=== PATIENT | female | born 1955 | race Caucasian/White ===

== ENCOUNTER 2020-10-04 21:55 | Inpatient (IN) | payer OTHER ==
--- NOTE | 2020-10-04 22:21 | EDM.PDOC ---
ED HPI GENERAL MEDICAL PROBLEM - General Chief Complaint: Cardiovascular Problem Stated Complaint: A-FIB Time Seen by Provider: 10/04/20 22:09 Source of Information: Reports: Patient History Limitations: Reports: No Limitations - History of Present Illness INITIAL COMMENTS - FREE TEXT/NARRATIVE: Patient presents to the ER tonight due to heart palpitations/heart fluttering sensation that started about an hour ago. She wears an apple watch and noted increased heart rate. 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 She denies any associated symptoms--no LH/dizzy, no chest pain/discomfort, no SOB/difficulty breathing. She reports that she received her second COVID immunization 2-weeks ago, has hand some vague nausea since but otherwise no concerns. She states she is active--walks 3 miles a day and does kick boxing. PMH--denies Meds--denies NKDA Tob--quit/former smoker EtOH--occ Drugs--denies Onset: Sudden Onset Date: 10/04/20 Onset Time: 21:00 Duration: Constant - Related Data Allergies Allergy/AdvReac Type Severity Reaction Status Date / Time No Known Allergies Allergy Verified 10/04/20 22:11 Home Meds: Home Meds NK [No Known Home Meds] 10/04/20 [History] ED ROS GENERAL - Review of Systems Review Of Systems: Comprehensive ROS is negative, except as noted in HPI. Constitutional: Reports: No Symptoms Respiratory: Reports: No Symptoms Cardiovascular: Reports: No Symptoms Neurological: Reports: No Symptoms ED EXAM, GENERAL - Physical Exam Exam: See Below Exam Limited By: No Limitations General Appearance: Alert, WD/WN, No Apparent Distress Eye Exam: Bilateral Eye: EOMI, Normal Inspection, PERRL Ears: Normal External Exam Nose: Normal Inspection Throat/Mouth: Normal Inspection, Normal Oropharynx, Normal Voice Head: Atraumatic, Normocephalic Neck: Normal Inspection, Supple, Full Range of Motion Respiratory/Chest: No Respiratory Distress, Lungs Clear, Normal Breath Sounds, No Accessory Muscle Use Cardiovascular: Normal Peripheral Pulses, No Edema, No Murmur, Tachycardia (rate range from 120-170's depending on rest/movement) Peripheral Pulses: 2+: Radial (L), Radial (R) GI/Abdominal: Normal Bowel Sounds, Soft, Non-Tender (Female) Exam: Deferred Rectal (Female) Exam: Deferred Back Exam: Normal Inspection Extremities: Normal Inspection, Normal Range of Motion, No Pedal Edema, Normal Capillary Refill Neurological: Alert, Oriented, Normal Cognition, No Motor/Sensory Deficits Psychiatric: Normal Affect, Normal Mood Skin Exam: Warm, Dry, Intact, Normal Color #1 Interpretation EKG Date: 10/04/20 Time: 22:00 (read at 2209, no STEMI; A-fib RVR) Rhythm: A-Fib Rate (Beats/Min): 148 Star: Normal P-Wave: Absent QRS: Normal (QRS-86) ST-T: Normal QT: Normal (QT/QTc-291/457) Course - Vital Signs Text/Narrative:: 2086--rate has slowed but not below 100 or converted to NSR with initial cardizem push; will start IV Cardizem gtt. patient had declined cardioversion opting for initial management as medication. will admit to ICU due to cardizem gtt. patient verbalized understanding/agreement [id number]--call placed/received call back from Dr Pacheco, Hospitalist for ICU admission at this time; he requested add-on lab of troponin Last Recorded V/S: Last Vital Signs Temp 100.0 F 10/04/20 22:19 Pulse 137 H 10/04/20 22:19 Resp 20 10/04/20 22:19 BP 134/89 10/04/20 22:19 Pulse Ox 98 10/04/20 22:19 - Orders/Labs/Meds Orders: Active Orders 24 hr Category Date Time Status Cardiac Monitoring [RC] .As Directed Care 10/04/20 22:15 Active EKG Documentation Completion [RC] ASDIRECTED Care 10/04/20 22:15 Active Peripheral IV Care [RC] . DIRECTED Care 10/04/20 22:15 Active Sodium Chloride 0.9% [Saline Flush] Med 10/04/20 22:15 Active 10 ml FLUSH ASDIRECTED PRN Peripheral IV Insertion Adult [OM.PC] Routine Oth 10/04/20 22:15 Ordered EKG 12 Lead [EK] Routine Ther 10/04/20 22:15 Ordered Medication Orders Sodium Chloride (Sodium Chloride 0.9% 10 Ml Syringe) 10 ml FLUSH ASDIRECTED PRN PRN Reason: Keep Vein Open Last Admin: 10/04/20 22:29 Dose: 10 ml Documented by: PUJA Labs: Laboratory Tests 10/04/20 10/04/20 Range/Units 22:10 22:10 WBC 8.6 (4.5-11.0) K/uL RBC 4.55 (3.30-5.50) M/uL Hgb 13.4 (12.0-15.0) g/dL Hct 41.5 (36.0-48.0) % MCV 91 (80-98) fL MCH 30 (27-31) pg MCHC 32 (32-36) % Plt Count 387 (150-400) K/uL Neut % (Auto) 68 H (36-66) % Lymph % (Auto) 19 L (24-44) % [place] % (Auto) 10 H (2-6) % Eos % (Auto) 2 (2-4) % Baso % (Auto) 1 (0-1) % Sodium 144 (140-148) mmol/L Potassium 3.9 (3.6-5.2) mmol/L Chloride 101 (100-108) mmol/L Carbon Dioxide 28 (21-32) mmol/L Anion Gap 14.8 H (5.0-14.0) mmol/L BUN 17 (7-18) mg/dL Creatinine 0.9 (0.6-1.0) mg/dL Est Cr Clr Drug Dosing 56.82 mL/min Estimated GFR (MDRD) > 60 (>60) Glucose 159 H (74-106) mg/dL Calcium 8.7 (8.5-10.1) mg/dL Total Bilirubin 0.2 (0.2-1.0) mg/dL AST 18 (15-37) U/L ALT 28 (12-78) U/L Alkaline Phosphatase 154 H (46-116) U/L Total Protein 7.8 (6.4-8.2) g/dL Albumin 3.5 (3.4-5.0) g/dL Globulin 4.3 H (2.3-3.5) g/dL Albumin/Globulin Ratio 0.8 L (1.2-2.2) Meds: Medications Generic Name Dose Route Start Last Admin Trade Name Freq PRN Reason Stop Dose Admin Sodium Chloride 10 ml 10/04/20 22:15 10/04/20 22:29 Sodium Chloride 0.9% 10 Ml Syringe FLUSH 10 ml ASDIRECTED PRN Administration Keep Vein Open Discontinued Medications Generic Name Dose Route Start Last Admin Trade Name Freq PRN Reason Stop Dose Admin Diltiazem HCl 20 mg 10/04/20 22:14 10/04/20 22:28 Diltiazem 25 Mg/5 Ml Sdv IVPUSH 10/04/20 22:15 20 mg ONETIME ONE Administration Departure - Departure Time of Disposition: 22:46 Disposition: Refer to Observation Condition: Good Clinical Impression: Atrial fibrillation with RVR Referrals: PCP,None [Primary Care Provider] - Forms: ED Department Discharge Sepsis Event Note (ED) - Focused Exam Vital Signs: Vital Signs Temp Pulse Resp BP Pulse Ox 10/04/20 22:19 100.0 F 137 H 20 134/89 98 10/04/20 22:17 100.0 F 137 H 20 134/89 98 - My Orders Last 24 Hours: My Active Orders 10/04/20 22:15 Cardiac Monitoring [RC] .As Directed EKG Documentation Completion [RC] ASDIRECTED Peripheral IV Care [RC] . DIRECTED Sodium Chloride 0.9% [Saline Flush] 10 ml FLUSH ASDIRECTED PRN Peripheral IV Insertion Adult [OM.PC] Routine EKG 12 Lead [EK] Routine - Assessment/Plan Last 24 Hours: My Active Orders 10/04/20 22:15 Cardiac Monitoring [RC] .As Directed EKG Documentation Completion [RC] ASDIRECTED Peripheral IV Care [RC] . DIRECTED Sodium Chloride 0.9% [Saline Flush] 10 ml FLUSH ASDIRECTED PRN Peripheral IV Insertion Adult [OM.PC] Routine EKG 12 Lead [EK] Routine
[2020-10-04] MEDS: Diltiazem 25 MG/5 ML SDV IVPUSH ONE (22:28)
[2020-10-04] MEDS: Sodium Chloride 0.9% 10 ML Syringe FLUSH PRN (22:29)
[2020-10-04] MEDS: Diltiazem 100 MG in Sodium Chloride 0.9% 100 ML IV SCH (22:44)
[2020-10-04] MEDS ORDERED: Acetaminophen 325 MG Tab PO PRN (23:35)
[2020-10-05] MEDS: Heparin Sodium 5,000 Units/ML Vial IVPUSH ONE (00:24)
[2020-10-05] MEDS: Heparin Sodium/D5W 25,000 UNITS/500 ML BAG IV SCH (00:25)
--- NOTE | 2020-10-05 01:30 | HP ---
IDENTIFYING DATA: Nicolasa Shen is a 65-year-old single female from [place], [place]. CHIEF COMPLAINT: Cardiac palpitations. 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 She reports she had a light supper and a glass of Diet Coke this evening, and shortly thereafter while reclining on the sofa in the cabin, she noted development of subjective palpitations. She had no chest pain, shortness of breath, diaphoresis, dizziness, nausea, or emesis. Has had no previous similar occurrence. She checked her Apple watch and found evidence of atrial fibrillation with rapid ventricular rate with rates of 120s to 150 by the nurse prn. She presents to the emergency room for further evaluation with ongoing subjective symptoms. No history of hypertension, diabetes, congenital heart disease, rheumatic fever, murmur, VT, or angina-like pain. No history of syncope or near-syncope. No knowledge of previous cardiorespiratory disease. PAST MEDICAL HISTORY: Previous surgery includes tonsillectomy in childhood only. No other hospitalizations. No chronic illnesses reported by the patient. MEDICATIONS: None. ALLERGIES: NONE NOTED. HABITS: Nonsmoker. Caffeine intake averages 1 to 2 caffeinated beverages daily. Alcohol use is sporadic with occasional moderate to heavy intake, noting 7 drinks in the last 2 days' time. IMMUNIZATIONS: Including hepatitis B, tetanus, influenza, and COVID vaccine series are complete. 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 Currently residing in [place], [place]. She is attending the [employer] very at [employer] in the [facility] area and presents with a family friend. FAMILY HISTORY: Mother had a history of ischemic heart disease with VT at 42 years of age, also had a recognized history of thyroid disease. Father had cardiac disease with interventional treatment at 60 years of age. Siblings have a history of hypertension. No other familial history of cardiac arrhythmias or diabetes. REVIEW OF SYSTEMS: NEUROLOGIC: LASIK corrective eye surgery. No glaucoma, retinopathy, or hearing changes. Early cataracts reported by her snowmobile mechanic. No history of stroke, seizures, focal weakness, or paresthesias. CARDIAC: As above. No history of diabetes. Lipid status is unknown. RESPIRATORY: Denies asthma, emphysema, tuberculosis, recent URIs, or COVID disease. Second of 2 COVID vaccinations was received approximately 2 weeks ago. GASTROINTESTINAL: Denies hepatitis, jaundice, gallbladder disease, chronic dyspepsia, or bowel changes. No previous abdominal surgery. GENITOURINARY: Postmenopausal. Occasionally rises once nightly to void. No history of chronic renal disease. MUSCULOSKELETAL: Without complaints. PHYSICAL EXAMINATION: GENERAL: Appearance is that of an adult female in no acute distress. VITALS: On admission, temperature borderline elevated at 100 degrees Fahrenheit, pulse rate 137, irregular with atrial fibrillation by cardiac monitoring, respiratory rate 20, blood pressure 134/89, and O2 saturations 98% on room air. HEENT: Hearing is intact. Pupils equal and reactive to light. Sclerae are anicteric. No nasal congestion. No oropharyngeal lesions or dental appliances. NECK: No adenopathy, thyromegaly, or JVD. Brisk irregular carotid pulses. No bruits. LUNGS: Symmetrical, clear, resonant, non-tachypneic. HEART: Irregularly irregular, tachycardic, atrial fibrillation by 12-lead EKG. No murmurs are identified. ABDOMEN: Soft, nontender, nondistended. No organomegaly. Active sounds. Good femoral pulses. No abdominal bruits or CVA pain. GENITOURINARY: Omitted. RECTAL: Omitted. EXTREMITIES: Good radial, posterior tibial, and dorsal pedal pulses. Non-diaphoretic. No cyanosis. No pitting edema or ischemic skin changes. DIAGNOSTIC DATA: A 12-lead EKG, atrial fibrillation, with rapid ventricular rate. Labs on admission: WBC 8.6, hemoglobin 13.4, hematocrit 41.5, platelet count 387,000. Sodium 144, potassium 3.9, BUN 17, creatinine 0.9, GFR greater than 60, glucose in nonfasting state at 159, AST 18, ALT 28, alkaline phosphatase 154. IMPRESSIONS: 1. New onset of atrial fibrillation with rapid ventricular rate. 2. Otherwise, well adult female with insignificant medical history, familial history of early onset of ischemic heart disease including mother and father. PLAN: The patient will be admitted to the ICU for continued supportive cares. Option of elective electrocardioversion was discussed with the patient. She defers, and elected to proceed with medical administration of IV Cardizem by bolus followed by drip. We will continue to monitor in the ICU, and on conversion, repeat 12-lead EKG. If she fails to show conversion to normal sinus rhythm with pharmacologic therapies, would consider elective cardioversion by hospitalist within 24 hours. IV heparin will be initiated to provide appropriate anticoagulant therapy. Additionally, we will draw a TSH and free T4. The patient anticipates return home to the [facility] over the weekend. Would anticipate need for followup with her caregivers in the [facility] area for further cardiac evaluation including echocardiogram, and if indicated, stress test. Full code status is to be maintained, provide bathroom privileges with standby assistance, offer sips of clear liquids, and continue to monitor. Timothy Pacheco MD /[id number]
[2020-10-05] MEDS: Metoprolol Tartrate 25 MG Tab PO SCH (05:01)
--- NOTE | 2020-10-05 05:15 | PN ---
DATE OF SERVICE: 10/05/2020 SUBJECTIVE: This is a 65-year-old female without a history of significant health problems, currently on no medications, was admitted to the hospital after presentation with a 1 hour persistence of cardiac palpitations with atrial fibrillation noted by her apple watch through the nighttime hours. She has had ongoing subjective palpitations without chest pain, dizziness, shortness of breath, or near syncope. Resting comfortably. No nausea or emesis. Cardiac monitoring has shown persistent atrial fibrillation, rate at rest of approximately 110 beats per minute, rising to 140 with minimal activity. She has rested comfortably through the night. OBJECTIVE: VITAL SIGNS: Blood pressure 104/73, pulse varying from 92 to 140 with persistent irregular rhythm of atrial fibrillation noted by cardiac monitoring, respiratory rate 14, and O2 saturations 95% on room air. NECK: Brisk irregular carotid pulses. No stridor. No JVD. LUNGS: Symmetrical and clear. HEART: Irregularly irregular. No murmurs or gallops. EXTREMITIES: [place], dry, and warm with intact pulses. No pitting edema. FOLLOWUP LABORATORIES: T4 within normal range at 0.9. TSH also normal at 3.2, with previous troponin at less than 0.017. ASSESSMENT AND PLAN: Idiopathic atrial fibrillation. No preexisting risk factors for cardiac dysrhythmia identified. We will continue with Cardizem drip. If the patient fails to convert over the next 4 to 6 hours, she is willing to consider the option of electrical cardioversion to be completed in the intensive care unit under cardiac monitoring. No changes in therapy at the current time. Timothy Pacheco MD /[id number]
[2020-10-05 06:08] VITALS: PULSE 70
[2020-10-05 08:39] VITALS: BP 125/81
--- NOTE | 2020-10-06 05:13 | DISCH ---
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 The evening of admission, shortly after supper, she was seated on the couch, noted subjective palpitations with her Apple watch indicating identified rhythm of atrial fibrillation with persistent palpitations and dysrhythmia noted by monitoring. She presented to the emergency room for evaluation with atrial fibrillation, confirmed by the ER staff. She has no chronic health problems. She is currently on no medications. Only previous hospitalization was for a tonsillectomy in childhood. She denies a history of hypertension, diabetes, cardiac or respiratory disease. No prior history of syncope, near syncope, or subjective palpitations. Nonsmoker. Minimal caffeine intake. Moderate alcohol use with the patient reporting periods of limited binge drinking without regular daily consumption. She has no history of thyroid disease. No headaches, stroke-like symptoms, visual disturbance, or peripheral vascular disease. No GI or symptoms noted. OBJECTIVE: VITAL SIGNS: Stable with the exception of cardiac rate ranging from 90 to 140 with atrial fibrillation noted by cardiac monitoring. HEENT: Unremarkable on presentation. No facial asymmetry. Speech was clear. NECK: Brisk, irregular carotid pulses. No JVD, adenopathy, or thyromegaly. LUNGS: Symmetrical, clear, resonant, nontachypneic. HEART: Irregularly irregular with variable rate. Atrial fibrillation confirmed by cardiac monitoring and 12-lead EKG without acute ischemic changes being evident. ABDOMEN: Benign to exam. EXTREMITIES: Warm, pink, dry without edema or diaphoresis. LABS ON ADMISSION: CBC and general chemistries were obtained. She had a mildly elevated glucose in a nonfasting state. Remainder of labs were unremarkable. Subsequent troponin, TSH, and free T4 were also noted to be within normal range. HOSPITAL COURSE: Nicolasa was offered the option of electrical cardioversion. However, she elected to defer this mode of treatment and instead pharmacologic therapies with Cardizem bolus followed by Cardizem infusion were initiated. Through the nighttime hours, she had persistent atrial fibrillation with variable rate, noting subjective palpitations without other limiting symptoms. At 0500 in the morning, she converted to a normal sinus rhythm. At that time, she was placed on oral metoprolol and weaned from her calcium channel catrachita therapy, maintaining a sinus rhythm for the remainder of hospital stay. On followup, vital signs were stable. Plans for discharge to home and outpatient followup were made. DISCHARGE INSTRUCTIONS: 1. Discharge her to home on 10/05/2020. Condition improved. Activity: May engage in light to moderate activities. Avoid strenuous physical activity or exercise. 2. Diet: Standard diet. Abstain from caffeinated beverages, decongestants, other stimulants, and excessive amounts of alcohol, which may precipitate cardiac dysrhythmia. 3. Advised to follow up with caregiver on return home to the [facility] for further evaluation. Likely, will require a stress test and echocardiogram. 4. Heparin was discontinued. She will continue with metoprolol tartrate 25 mg p.o. b.i.d. and aspirin 81 mg daily. ADMITTING DIAGNOSIS: New-onset atrial fibrillation with rapid ventricular rate. DISCHARGE DIAGNOSIS: New-onset atrial fibrillation with rapid ventricular rate with conversion to normal sinus rhythm with pharmacologic therapies. /[id number]
== END 2020-10-05 08:55 | disposition home or self-care (01) | DRG 310 ==
LOC: JP.ED 21:55 → JP.ICU 22:43
PROVIDERS: ADMIT Family Medicine; ATTEND Family Medicine
DX: I48.19 Other persistent atrial fibrillation (principal); Z87.891 Personal history of nicotine dependence; Z82.49 Family history of ischemic heart disease and other diseases of the circulatory system
CPT/HCPCS: 36415; 80053; 84439; 84443; 84484; 85025; 93005; 96374; 99285-25; A9270-GY; J1644; J3490